=== PATIENT | female | born 1960 | race Caucasian/White ===

== ENCOUNTER 2017-01-13 16:48 | Outpatient (CLI) | payer OTHER ==
--- NOTE | 2017-01-13 21:55 | MRI Report ---
EXAM: MRI LUMBAR SPINE WITHOUT CONTRAST EXAM DATE: 01/13/2017 05:30 PM. CLINICAL HISTORY: Spinal stenosis of lumbar region. Lumbar spine pain. COMPARISON: 06/01/2014. TECHNIQUE: Multiplanar, multisequence T1-weighted and fluid-sensitive sequences of the lumbar spine f rom T12 to S1 without contrast. Other: None. FINDINGS: Spinal Cord: The conus terminates at L1. No signal abnormality in the visualized spinal cord. Alignment: No change of alignment. Bone Marrow: Five [id number] lumbar vertebral bodies are assumed. Prominent degenerative endplat e signal changes with disk degeneration again noted at the L3-L4 level. Disk Levels/Facets: T12-L1: Unremarkable. L1-L2: Unremarkable. L2-L3: [id number] degenerative disk disease. Broad-based bulge. Mild marginal spurring. Additio nal right intraforaminal disk protrusion with annular fissure. This may represent additional disk deg eneration. There is no evidence for progressive stenosis, however. L3-L4: Again seen are findings of advanced degenerative disk disease. Broad-based bulge with protrusi on laterally into both foramina. Marginal spurring. Similar degree of relatively mild facet arthropat hy. No significant or progressive central stenosis. Stable bilateral foraminal stenosis from intrafor aminal disk protrusions accompanied by osteophytic spurring. L4-L5: Minimal additional disk space narrowing. Shallow broad-based bulge. Mild facet arthropathy. No significant or progressive central canal stenosis. Minimally more prominent but mild foraminal steno sis without evidence for nerve root compression. L5-S1: Stable, no stenosis. Musculature: No acute edema or asymmetric fatty atrophy. Other: Stable findings of thickening of multiple cauda equina nerve roots at and below the L3 level. IMPRESSION: 1. Multilevel degenerative disk disease, most severe as before at the L3-L4 level. 2. Progressive disk degeneration at L2-L3 where there is an intraforaminal disk protrusion now with a n annular fissure on the right. 3. Mildly progressive degenerative changes as described at L4-L5. 4. No change of alignment. 5. No evidence for progressive or significant central canal stenosis. 6. Stable findings of nonspecific cauda equina nerve root thickening at and below the L3 level. The d ifferential could include chronic hypertrophic neuropathy or arachnoiditis. Comment: The following findings are so common in adults without low back pain that while we report th eir presence, they must be interpreted with caution and in the context of the clinical situation. (Re cat Bañuelos et al, Spine 2001) Prevalence of findings in patients without low back pain: Disk degeneration (any evidence): 92% Disk desiccation/T2 signal loss: 83% Disk height loss: 56% Disk bulge: 64% Disk protrusion: 32% Annular tear/high intensity zone: 38% [facility] Referring Provider Line: [phone] SITE ID: [id number]
== END 2017-01-13 16:49 | disposition home or self-care (01) ==
LOC: DI 16:48
PROVIDERS: ATTEND Physical Medicine & Rehabilitation
DX: M51.36 Other intervertebral disc degeneration, lumbar region (principal); M47.896 Other spondylosis, lumbar region; M51.26 Other intervertebral disc displacement, lumbar region
CPT/HCPCS: 72148

== ENCOUNTER 2023-11-17 08:00 | Outpatient (CLI) | payer OTHER | END 2023-11-17 23:59 | disposition home or self-care (01) | LOC: LAB.S 08:00 | PROVIDERS: ATTEND Physician Assistant Medical | DX: N39.0 Urinary tract infection, site not specified (principal) | CPT/HCPCS: 87086; 87181 ==

== ENCOUNTER 2024-01-08 10:28 | Outpatient (CLI) | payer OTHER ==
[2024-01-08 10:44] LABS: BASOPHILS # (AUTO) 0.1 10^3/uL (0.0-0.1); BASOPHILS % (AUTO) 0.9 %; EOSINOPHILS # (AUTO) 0.2 10^3/uL (0.0-0.7); EOSINOPHILS % (AUTO) 2.4 %; HCT - HEMATOCRIT 38.5 % (37.0-47.0); HGB - HEMOGLOBIN 12.1 g/dL (12.0-16.0); LYMPHOCYTES # (AUTO) 2.1 10^3/uL (1.5-3.5); LYMPHOCYTES % (AUTO) 33.1 %; MEAN CORPUSCULAR HEMOGLOBIN 29.7 pg (27.0-31.0); MEAN CORPUSCULAR HGB CONC 31.4 g/dL (32.0-36.0); MEAN CORPUSCULAR VOLUME 94.4 fL (81.0-99.0); MEAN PLATELET VOLUME 8.9 fL (7.9-10.8); MONOCYTES # (AUTO) 0.5 10^3/uL (0.0-1.0); MONOCYTES % (AUTO) 7.8 %; NEUTROPHILS # (AUTO) 3.5 10^3/uL (1.5-6.6); NEUTROPHILS % (AUTO) 55.6 %; PLT - PLATELET COUNT 317 10^3/uL (130-450); RED BLOOD COUNT 4.08 10^6/uL (4.20-5.40); RED CELL DISTRIBUTION WIDTH 13.2 % (12.0-15.0); WHITE BLOOD COUNT 6.3 x10^3/uL (4.8-10.8)
[2024-01-08 11:02] LABS: ALBUMIN 4.7 g/dL (3.2-5.5); ALBUMIN/GLOBULIN RATIO 1.9 (1.0-2.2); ALKALINE PHOSPHATASE 59 IU/L (42-121); ALT ALANINE AMINOTRANSFERASE 20 IU/L (10-60); AST ASPARTATE AMINOTRANSFERASE 19 IU/L (10-42); BILIRUBIN,TOTAL 0.4 mg/dL (0.2-1.0); BUN - BLOOD UREA NITROGEN 21 mg/dL (6-20); CALCIUM 9.9 mg/dL (8.5-10.3); CARBON DIOXIDE - CO2 23 mmol/L (21-32); CHLORIDE 108 mmol/L (101-111); CHOL/HDL RATIO 3.1 (<4.4); CHOLESTEROL 242 mg/dL; GFR - MDRD 56 (>89); GLUCOSE 116 mg/dL (74-104); HDL CHOLESTEROL 77 mg/dL; LDL CHOLESTEROL,CALCULATED 145 mg/dL; LDL/HDL RATIO 1.9 (<4.4); POTASSIUM 3.7 mmol/L (3.5-4.5); SODIUM 140 mmol/L (135-145); TOTAL PROTEIN 7.2 g/dL (6.4-8.9); TRIGLYCERIDES 102 mg/dL (48-352); VLDL CHOLESTEROL 20 mg/dL
[2024-01-08 11:11] LABS: THYROID STIMULATING HORMONE 1.16 uIU/mL (0.34-5.60)
== END 2024-01-08 10:29 | disposition home or self-care (01) ==
LOC: LAB 10:28
PROVIDERS: ATTEND Nurse Practitioner Family
DX: I10 Essential (primary) hypertension (principal); N92.6 Irregular menstruation, unspecified; F41.9 Anxiety disorder, unspecified
CPT/HCPCS: 36415; 80050; 80061; 83721

== ENCOUNTER 2024-01-13 08:00 | Outpatient (CLI) | payer OTHER | END 2024-01-13 23:59 | disposition home or self-care (01) | LOC: LAB 08:00 | PROVIDERS: ATTEND Urology | DX: Z87.440 Personal history of urinary (tract) infections (principal) | CPT/HCPCS: 87077; 87086; 87181 ==

== ENCOUNTER 2024-02-03 08:00 | Outpatient (CLI) | payer OTHER | END 2024-02-03 23:59 | disposition home or self-care (01) | LOC: LAB.R 08:00 | PROVIDERS: ATTEND Urology | DX: R30.0 Dysuria (principal) | CPT/HCPCS: 81001; 87077; 87086; 87181 ==

== ENCOUNTER 2024-02-17 08:00 | Outpatient (CLI) | payer OTHER | END 2024-02-17 23:59 | disposition home or self-care (01) | LOC: LAB 08:00 | PROVIDERS: ATTEND Urology | DX: Z87.440 Personal history of urinary (tract) infections (principal) | CPT/HCPCS: 87086; 87181 ==

== ENCOUNTER 2024-03-07 07:31 | Day surgery (SDC) | payer OTHER ==
[~2024-03-07 07:31] MED LIST: ceFAZolin 2 GM VIAL ONE
[2024-03-07] MEDS: LACTATED RINGERS 1,000 ML IV ONE ×2 (07:44→09:07)
[2024-03-07] MEDS ORDERED: LIDOCAINE 2% URO-JET 5 ML SYRINGE UR ONE (08:23)
[2024-03-07] MEDS ORDERED: LIDOCAINE-PF 2% 10 ML AMP SUBQ ONE (08:25)
[2024-03-07] MEDS ORDERED: fentaNYL 100 MCG/2 ML VIAL ONE (08:25)
[2024-03-07] MEDS ORDERED: PROPOFOL 200 MG/20 ML VIAL IVP ONE (08:25)
--- NOTE | 2024-03-07 08:36 | ANESTHESIA ---
Pre-Anesthesia VS, & Labs - Diagnosis RECURRENT UTIS - Procedure FLEXIBLE CYSTOSCOPY Vital Signs: Temp Pulse Resp BP Pulse Ox O2 Flow Rate 36.4 C L 81 19 118/70 95 03/07/24 07:49 03/07/24 07:49 03/07/24 07:49 03/07/24 07:49 03/07/24 07:49 Height: 5 ft 4 in Weight (kg): 56.7 kg Body Mass Index: 21.4 BMI Classification: Normal - NPO >8 hours - Is Patient ?: No Home Medications and Allergies Home Medications: Ambulatory Orders Cetirizine [ZyrTEC] 10 mg PO DAILY 02/26/24 Cholecalciferol (Vitamin D3) [Vitamin D3] 5,000 unit PO DAILY 02/26/24 Omeprazole 20 mg PO DAILY 02/26/24 S-Adenosylmethionine Sul Tosyl [Diomedes-E] 400 mg PO DAILY 02/26/24 Vitamin K2 100 mcg PO DAILY 02/26/24 Fluticasone [Flonase] 03/07/24 Cetirizine [ZyrTEC] 10 mg PO DAILY 02/26/24 Cholecalciferol (Vitamin D3) [Vitamin D3] 5,000 unit PO DAILY 02/26/24 Omeprazole 20 mg PO DAILY 02/26/24 S-Adenosylmethionine Sul Tosyl [Diomedes-E] 400 mg PO DAILY 02/26/24 Vitamin K2 100 mcg PO DAILY 02/26/24 Fluticasone [Flonase] 03/07/24 Allergies/Adverse Reactions: Allergies Allergy/AdvReac Type Severity Reaction Status Date / Time clindamycin Allergy Unknown Verified 03/07/24 07:57 pseudoephedrine Allergy hyper Verified 03/07/24 07:57 [From Sudafed] simvastatin [From Zocor] Allergy muscle Verified 03/07/24 07:57 weakness sulfamethoxazole Allergy Unknown Verified 03/07/24 07:57 [From Septra] trimethoprim [From Septra] Allergy Unknown Verified 03/07/24 07:57 Anes History & Medical History - Anesthetic History Anesthesia Complications: reports: No previous complications Family history of Anesthesia Complications: Denies Family history of Malignant Hyperthermia: Denies - Medical History Cardiovascular: reports: None Pulmonary: reports: None Gastrointestinal: reports: GERD Urinary: reports: Chronic bladder infection Neuro: reports: None Musculoskeletal: reports: Osteoarthritis, Other Endocrine/Autoimmune: reports: None Blood Disorders: reports: None Skin: reports: Psoriasis, Other Smoking Status: Former smoker (QUIT IN APR 2023) Psychosocial: reports: Cannabis (DAILY VAPE) History of Cancer?: No - Surgical History Urologic: reports: Bladder surgery Results - EKG Results EKG Comparison: Reviewed EKG, Normal EKG Exam General: Alert, Oriented x3, Cooperative, No acute distress Dental: Other (TWO CHIPPED TEETH) Mouth Openin Fingerbreadth Neck Mobility: Normal Mallampati classification: II Thyromental Distance: 4-6 cm Mental/Cognitive Status: Alert/Oriented X3, Normal for patient Cognitive Status: Within normal limits Plan Anesthesia Type: General Consent for Procedure(s) Verified and Reviewed: Yes Code Status: Attempt Resuscitation ASA classification: 2-Mild systemic disease Is this case an emergency?: No
[2024-03-07] MEDS ORDERED: ONDANSETRON 4 MG/2 ML VIAL ONE (08:49)
[2024-03-07 09:42] VITALS: BP 122/74; O2SAT 96
--- NOTE | 2024-03-07 10:32 | Discharge Plan ---
Discharge Plan Problem Reviewed?: Yes Disposition: Home, Self Care Condition: Good Prescriptions: Estradiol [Estrace] 42.5 gm VG DAILY #42.5 gm Diet: Regular Activity Restrictions: No Restrictions Shower Restrictions: No Driving Restrictions: No Instruction Topics: Cystoscopy Additional Instructions or Follow Up instructions: start using estrogen cream as instructed Return to clinic in 6 months No Smoking: If you smoke, Please STOP! Call for help. Follow-up with: Abelardo Rosa MD [Provider Admit Priv/Credential] -
--- NOTE | 2024-03-07 10:34 | OPERATIVE REPORT ---
Operative Report - General Procedure Date: 03/07/24 Planned Procedure: Flexible cystoscopy Pre-Op Diagnosis: Recurrent UTIs Procedure Performed: Flexible cystoscopy Post Op Diagnosis: Recurrent UTIs - Procedure Note Primary Surgeon: Moe Anesthesia Provider: ANDRES Aleman Anesthesia Technique: MAC Pathology: none Indications: severe anxiety and unable to proceed with procedures in the office Findings: Normal cystoscopy vaginal atrophy Complications: none - Other Other Information/Narrative: After informed consent was obtained the patient brought to the OR and laid the supine position. The patient was anesthetized per anesthesia protocols and prepped draped usual sterile fashion in the frog-leg position. A formal timeout was performed reconfirming the patient procedure and laterality. A 16 Hebrew flexible cystoscope was advanced easily per urethra into the bladder. There were no masses lesions or other concerns. The bladder appeared normal. The ureteral orifices were orthotopic in nature. Her vaginal mucosa was noted be severely atrophied This include the procedure the patient tolerated procedure well. She was brought to PACU without further incident. She was started on estrogen cream for recurrent UTIs and follow-up in 6 months
--- NOTE | 2024-03-07 12:28 | ANESTHESIA POST OP EVALUATION ---
Anesthesia Post Eval - Post Anesthesia Eval Vitals: Last Vital Signs Temp 36.2 C L 03/07/24 09:26 Pulse 57 L 03/07/24 09:26 Resp 16 03/07/24 09:26 BP 122/74 03/07/24 09:26 Pulse Ox 96 03/07/24 09:26 O2 Flow Rate CV Function Including HR & BP: Stable Pain Control: Satisfactory Nausea & Vomiting: Negative Mental Status: Baseline Respiratory Status: Airway Patent Hydration Status: Satisfactory Anesthesia Complications: None
== END 2024-03-07 07:32 | disposition home or self-care (01) ==
LOC: SDS 07:31
PROVIDERS: ATTEND Urology
DX: Z87.440 Personal history of urinary (tract) infections (principal); N95.2 Postmenopausal atrophic vaginitis; F41.9 Anxiety disorder, unspecified; Z87.891 Personal history of nicotine dependence
CPT/HCPCS: 52000; J7120